=== PATIENT | female | born 1955 | race Caucasian/White ===

== ENCOUNTER → 2023-07-02 | Outpatient (CLI) | payer MEDICARE ==
[~2023-07-02] VITALS: Ht 165 cm; Wt 90.9 kg
[2023-07-02] VITALS (7 sets, daily range): BP systolic 140–174; BP diastolic 65–101
[~2023-07-02] MED LIST: BUDE10.2 IH; CELE200C PO; CITA20TA9 PO; HYDROcodone/ACETAMINOPHEN 5 MG/325 MG TABLET PO PRN; LEVO88CA4 PO; LIDOCAINE 1% INJ 10 ML VIAL INJ ONE; MIDAZOLAM INJ 2 MG/2 ML VIAL IVP ONE; MONT-40 PO; MULT-1136 PO; NS IV 1000 ML 1,000 ML IV STA; PANT40TA52 PO; RT-ALBUINH INH; VITA-189 PO; fentaNYL INJECTION 100 MCG/2 ML VIAL IVP ONE
[2023-07-02 09:25] LABS: HEMATOCRIT 41 % (35-52); HEMOGLOBIN 13.1 g/dL (11.5-16.0); MEAN CORPUSCULAR HEMOGLOBIN 31 pg (25-34); MEAN CORPUSCULAR HGB CONC 32 g/dL (32-36); MEAN CORPUSCULAR VOLUME 96 fL (80-99); PLATELET COUNT 195 10^3/uL (130-400); WHITE BLOOD COUNT 5.4 10^3/uL (4.3-11.0)
[2023-07-02 09:36] LABS: INR 0.9 (0.8-1.4); PROTHROMBIN TIME PATIENT 12.5 SEC (12.2-14.7)
--- NOTE | 2023-07-02 12:25 | Pre-Op Note & Conscious Sedat ---
Pre-Operative Progress Note Date of Available H&P: Jul 02, 2023 Date H&P Reviewed: Jul 02, 2023 Time H&P Reviewed: 10:00 Pre-Op Diagnosis: lymphadenopathy Moderate Sedation PreProcedure Time 10:00 ASA Score 2 Airway Lungs Heart ASA score ASA 1: a normal healthy patient ASA 2: a patient with a mild systemic disease (mid diabetes, controlled hypertension, obesity ASA 3: a patient with a severe systemic disease that limits activity (angina, COPD, prior Myocardial infarction) ASA 4: a patient with an incapacitating disease that is a constant threat to life (CHF, renal failure) ASA 5: a moribund patient not expected to survive 24 hrs. (ruptured aneurysm) ASA 6: a declared brain- patient whose organs are being harvested. For emergent operations, add the letter E after the classification Mallampati Classification Grade 2 Sedation Plan Analgesia, Amnesia, Plan communicated to team members, Discussed options with patient/fam, Discussed risks with patient/fam The patient is an appropriate candidate to undergo the planned procedure, sedation, and anesthesia. The patient immediately re-assessed prior to indication. TALIA TOLENTINO MD Jul 02, 2023 12:25
--- NOTE | 2023-07-02 13:14 | Diagnostic Imaging Report ---
INDICATION: Retroperitoneal lymphadenopathy. Patient presents for CT-guided biopsy. DETAILS OF THE PROCEDURE: The patient was brought to the CT suite and placed on the table in the prone position. Axial imaging through the abdomen was performed to evaluate for an appropriate entry site. The procedure was performed utilizing conscious sedation with Radiology nursing and constant patient monitoring. The patient was given a total of 100 mg of fentanyl intravenously and 1 mg of Versed intravenously. The total procedure time was approximately 13 minutes. The low back was prepped and draped in the usual sterile fashion. A small amount of 1% lidocaine was utilized for local anesthesia. An 18-gauge coaxial Temno needle was advanced from a right para-midline approach posteriorly and placed with its tip along the edge of the dominant enlarged right-sided retroperitoneal lymph node just below the level of the lower pole of the right kidney and located between the aorta and IVC. Numerous core biopsies were obtained. The needle was withdrawn and hemostasis was obtained using manual compression. The patient tolerated the procedure well and left the Department in stable condition. IMPRESSION: Successful CT-guided retroperitoneal lymph node biopsy utilizing conscious sedation. Pathology results are currently pending. Dictated by: Dictated on workstation # [id number]
== END ==
LOC: RAD 08:30
PROVIDERS: ATTEND Internal Medicine Hematology & Oncology
DX: C43.70 Malignant melanoma of unspecified lower limb, including hip (principal); R59.0 Localized enlarged lymph nodes
CPT/HCPCS: 36415; 49180; 77012; 85027; 85610; 85730; 99156